=== PATIENT | male | born 1950 | race Caucasian/White ===

== ENCOUNTER 2019-12-21 10:34 | Emergency (ER) | payer MEDICARE, OTHER ==
[~2019-12-21] VITALS: Ht 175.3 cm; Wt 85.9 kg
--- NOTE | 2019-12-21 11:06 | PHYS DOC ---
Past History Past Medical History: Hypertension Adult General Chief Complaint Chief Complaint: WRIST PAIN HPI HPI Patient is a 69-year-old male who presents for right wrist abnormality via EMS. Patient was working on the job when an unknown dog knocked him over from behind. Patient fell on an outstretched right hand to brace his fall, did not hit his head or lose consciousness but it immediately felt a pop and focal pain to his right wrist. Denies motor or sensory changes, no neurologic deficits reported but ongoing excruciating pain to right wrist with visual abnormalities without skin penetration prompted him to call EMS. On arrival, patient was placed in temporary splint. Patient hemodynamically stable, given IV pain medication and subsequently rushed to our ER for evaluation Review of Systems Review of Systems Fourteen body systems of review of systems have been reviewed. See HPI for pertinent positives and negative responses, other santiago all other systems are negative, non-pertinent or non-contributory Allergies Allergies Allergies Coded Allergies Type Severity Reaction Last Updated Verified No Known Drug Allergies 12/21/19 No Physical Exam Physical Exam Constitutional: Well developed, well nourished, no acute distress, non-toxic appearance. HENT: Normocephalic, atraumatic, bilateral external ears normal, oropharynx moist, no oral exudates, nose normal. Eyes: PERRLA, EOMI, conjunctiva normal, no discharge. Neck: Normal range of motion, no tenderness, supple, no stridor. Cardiovascular: Heart rate regular, sinus rhythm, no murmurs rubs or gallops Lungs & Thorax: Bilateral breath sounds clear to auscultation Abdomen: Bowel sounds normal, soft, no tenderness, no masses, no pulsatile masses. Nonsurgical abdomen, no peritoneal signs Skin: Warm, dry, no erythema, no rash. Back: No tenderness, no CVA tenderness. Extremities: No cyanosis, no clubbing, ROM of right hand diminished globally due to pain, no edema. Palpable and visual abnormality present to the right wrist, diffuse pain with palpation of anatomical snuffbox in addition to global wrist area. No open fracture Neurologic: Alert and oriented X 3, normal motor & sensory function, no focal deficits noted. Medial, radial, and ulnar nerve functions intact. Capillary refill less than 3 seconds Psychologic: Affect normal, judgement normal, mood normal. Current Patient Data Vital Signs Vital Signs Date Time Temp Pulse Resp B/P (MAP) Pulse Ox O2 Delivery O2 Flow Rate FiO2 12/21/19 16:10 84 20 148/99 (115) 93 Room Air 12/21/19 10:45 98.2 EKG EKG [] Radiology/Procedures Radiology/Procedures PROCEDURE: HAND RIGHT 3V HAND AND WRIST RIGHT 3V 12/21/2019 10:48 AM INDICATION: Wrist deformity COMPARISON: 12/21/2019 TECHNIQUE: 3 views of the right wrist are provided. 3 views the right hand are provided. FINDINGS/ IMPRESSION: Fracture dislocation at the radiocarpal joint with a comminuted fracture of the distal radial metadiaphysis with intra-articular extension. There is foreshortening. A mildly displaced ulnar styloid process fracture is noted. There is apex volar angulation of fracture fragments with comminution along the dorsal margin of the radius. At least 5 fracture fragments are noted. There is suggestion of a fracture involving the pisiform with minimal displacement. Scaphoid body and base appears intact. Lunate is normal in morphology. First and second carpometacarpal joints are intact. The carpals and phalanges appear intact. Joint space narrowing involving interphalangeal joints compatible with osteoarthrosis, most prominent involving the distal interphalangeal joint of second digit. Electronically signed by: Dorothy Wiseman MD (12/21/2019 11:32 AM) [facility] Heart Score Risk Factors: Risk Factors: DM, Current or recent (<one month) smoker, HTN, HLP, family history of CAD, obesity. Risk Scores: Risk Factors: DM, Current or recent (<one month) smoker, HTN, HLP, family history of CAD, obesity. Course & Med Decision Making Course & Med Decision Making Pertinent Labs and Imaging studies reviewed. (See chart for details) Discussed diagnosis of numerous right hand/wrist bony abnormalities as described in radiology impression above. Patient is negative on verbal Covid screen, is currently n.p.o. status with last full meal eaten greater than 12 hours ago Orthopedics at consulted and case discussed with, Dr. Sullivan. He agreed for transfer to their ER for further medical and surgical management I discussed this with patient who is agreeable and amenable for plan of care as stated. All questions and concerns addressed prior to ER transport to [facility] in stable condition for higher acuity of care [place] Disclaimer Dragon Disclaimer This electronic medical record was generated, in whole or in part, using a voice recognition dictation system. Departure Departure: Impression: Primary Impression: Fracture of right wrist Disposition: 02 DC/TRF OTHER SHORT TERM HOS ([facility] ER for evaluation and subsequent admission) Admitting Physician: Other (DR. SULLIVAN) Condition: STABLE Referrals: PCP,NO (PCP) MARK ANTHONY GARZA DO Dec 21, 2019 11:06
--- NOTE | 2019-12-21 11:35 | RAD ---
HAND AND WRIST RIGHT 3V 12/21/2019 10:48 AM INDICATION: Wrist deformity COMPARISON: 12/21/2019 TECHNIQUE: 3 views of the right wrist are provided. 3 views the right hand are provided. FINDINGS/ IMPRESSION: Fracture dislocation at the radiocarpal joint with a comminuted fracture of the distal radial metadiaphysis with intra-articular extension. There is foreshortening. A mildly displaced ulnar styloid process fracture is noted. There is apex volar angulation of fracture fragments with comminution along the dorsal margin of the radius. At least 5 fracture fragments are noted. There is suggestion of a fracture involving the pisiform with minimal displacement. Scaphoid body and base appears intact. Lunate is normal in morphology. First and second carpometacarpal joints are intact. The carpals and phalanges appear intact. Joint space narrowing involving interphalangeal joints compatible with osteoarthrosis, most prominent involving the distal interphalangeal joint of second digit. Electronically signed by: Dorothy Wiseman MD (12/21/2019 11:32 AM) [facility]
[2019-12-21] MEDS ORDERED: HYDROcodone/APAP 7.5/325MG 1 TAB TABLET PO ONE (13:15)
[2019-12-21 16:10] VITALS: BP 148/99
== END 2019-12-21 14:38 | disposition short-term general hospital (02) ==
LOC: ER 10:34
DX: S52.501A Unspecified fracture of the lower end of right radius, initial encounter for closed fracture (principal); I10 Essential (primary) hypertension; W18.39XA Other fall on same level, initial encounter; Y93.89 Activity, other specified; Y92.89 Other specified places as the place of occurrence of the external cause; Y99.0 Civilian activity done for income or pay
CPT/HCPCS: 73110; 73130; 99285